=== PATIENT | female | born 1970 | race Caucasian/White ===

== ENCOUNTER → 2020-10-02 07:12 | Outpatient (CLI) | payer BC, SELFPAY ==
--- NOTE | ~2020-10-02 | MM_ITS ---
EXAMINATION: MM screening [facility] BI w gordy HISTORY: Screening mammogram TECHNIQUE: Craniocaudal and mediolateral oblique 3-D tomosynthesis images were obtained and synthetic 2-D images were generated. Bilateral rotated lateral cc views. CAD analysis was submitted and interp reted. COMPARISON: 01/06/2016 bilateral diagnostic digital mammogram and bilateral complete breast ultrasound examination 12/27/2015 bilateral digital screening mammogram BREAST PARENCHYMAL COMPOSITION: The breasts are heterogeneously dense, which may obscure small masses . FINDINGS: Again noted are bilateral benign-appearing calcifications, more numerous on the left. There is no evidence of suspicious mass, calcification, or architectural distortion to suggest malignancy in either breast. There has been no suspicious interval change. IMPRESSION: 1. No mammographic evidence of malignancy. 2. Recommend routine screening mammography in one year. BI-RADS Category 2: Benign finding(s). Reviewed, dictated and finalized at location A.
== END ==
DX: Z12.31 Encounter for screening mammogram for malignant neoplasm of breast (principal)
CPT/HCPCS: 77063; 77067

== ENCOUNTER → 2022-07-30 11:55 | Outpatient (CLI) | payer BC, SELFPAY ==
--- NOTE | ~2022-07-30 | MM_ITS ---
EXAMINATION: MM screening [facility] BI w gordy HISTORY: Screening TECHNIQUE: Craniocaudal and mediolateral oblique 3-D tomosynthesis images were obtained and synthetic 2-D images were generated. CAD analysis was submitted and interpreted. COMPARISON: Comparison to multiple prior studies sequentially, with oldest reviewed study dated 10/2014. BREAST PARENCHYMAL COMPOSITION: The breasts are heterogeneously dense, which may obscure small masses FINDINGS: There is a cluster of indeterminate calcifications in the upper outer quadrant of the left breast. There are no new masses or architectural distortion. IMPRESSION: 1. Clustered indeterminate calcifications upper outer quadrant of the left breast posteriorly. 2. Magnification views are recommended. BI-RADS Category 0: Incomplete: Needs additional imaging evaluation. Reviewed, dictated and finalized at location A. IMPRESSION: 1. Clustered indeterminate calcifications upper outer quadrant of the left randa st posteriorly. 2. Magnification views are recommended. BI-RADS Category 0: Incomplete: Needs additional imaging evaluation.
== END ==
PROVIDERS: PCP Family Medicine Adolescent Medicine
DX: Z12.31 Encounter for screening mammogram for malignant neoplasm of breast (principal); R92.8 Other abnormal and inconclusive findings on diagnostic imaging of breast
CPT/HCPCS: 77063; 77067

== ENCOUNTER 2022-08-13 00:16 | Day surgery (SDC) | payer BC, SELFPAY ==
[2022-08-04 12:36] VITALS: BMI 20.9
[2022-08-13 10:04] VITALS: BMI 20.8
--- NOTE | 2022-08-13 10:35 | P.PNAN_ITS ---
Anes - Initial Pre Proc Eval Procedure: Operation Date: 08/13/22 11:15 Proposed Procedures p Screening Colonoscopy - Andrey Burgos MD Date/Time: 08/13/22 10:35 Surgeon: Andrey Burgos MD Pre Op Diagnosis: neoplasm screening Patient Data Age: 51 Gender: F Height: 1.68 m Weight: 58.5 kg Allergies Allergy/AdvReac Type Severity Reaction Status Date / Time amoxicillin Allergy Swelling Verified 08/04/22 12:56 of Lip/Tongue/Throat Tetanus Vaccines and Toxoid Allergy Anaphylaxis Verified 08/04/22 12:56 Home Medications Medication Instructions Recorded Confirmed Type estradiol 0.5 mg tablet 1 mg PO DAILY 07/19/22 08/04/22 History omega 6-yif-arv-fish oil 60 mg-90 1 cap PO DAILY 07/19/22 08/04/22 History mg-500 mg capsule (Fish Oil) collagen,hydrolysate 500 mg-biotin cap PO 08/04/22 History 800 mcg-ascorbic acid 50 mg capsule tpjvzdhfnxaz-bbsioqju-QQ-omega cap PO 08/04/22 08/04/22 History 3,6,9 #3 400 mcg capsule sodium,potassium,mag sulfates 17.5 See Rx Instructions PO .COMPLEX 08/04/22 08/04/22 Rx gram-3.13 gram-1.6 gram oral soln #354 mL (Suprep Bowel Prep Kit) Patient hx anesthesia problems: none Family hx anesthesia problems: none Results Review: All pre-operative results and documents have been reviewed as part of the pre- operative evaluation. [facility] Surgical History Surgical History (Updated 07/14/22 @ 08:32 by Gunnar Templeton CMA) History of partial hysterectomy Family History Family History (Updated 07/14/22 @ 08:33 by Gunnar Templeton CMA) Father Diabetes mellitus Obese Mother Obese Diabetes mellitus Sibling Diabetes mellitus Obese Sibling Obese Diabetes mellitus Social History Social History (Updated 07/14/22 @ 08:32 by Gunnar Templeton CMA) Smoking status: Never smoker Alcohol intake: current Drinks per week: 1 Alcohol use details: rarely Substance use: never Substance use type: does not use Living arrangements: with family Spiritual care concerns: No Anes - Eval Final PreProcedure Day of Procedure 08/13/22 10:35 Patient weight: normal Heart: regular rate and rhythm Lungs: clear to auscultation Airway: Mallampati scale class II Neurological: alert and oriented Last oral intake: >/= 8 hours ASA classification: II Emergent: no Anesthetic plan: proceed Anesthesia type and monitoring: general GIVS and standard monitoring Results Review: All pre-operative results and documents have been reviewed as part of the pre- operative evaluation. Informed Consent: The patient's anesthetic plan and its attendant risks and benefits were discussed with the patient/family/POA. Questions were solicited and answers provided to the satisfaction of the patient/family/POA.
--- NOTE | 2022-08-13 10:47 | P.HP_ITS ---
History of Present Illness History of Present Illness Consent: Risks, benefits, and alternatives have been discussed and questions answered. Patient agrees to proceed with procedure. Chief complaint: neoplasm screening Narrative: Maral Calderon is a 51 year old female Presents for screening colonoscopy. Patient's current weight appetite and bowel movements are normal. Patient denies abdominal pain. She has had no bleeding. Family history noncontributory. Review of Systems Review of Systems: Review of systems noncontributory. [facility] Surgical History Surgical History (Updated 07/14/22 @ 08:32 by Gunnar Templeton [facility]) History of partial hysterectomy Family History Family History (Updated 07/14/22 @ 08:33 by Gunnar Templeton [facility]) Father Diabetes mellitus Obese Mother Obese Diabetes mellitus Sibling Diabetes mellitus Obese Sibling Obese Diabetes mellitus Social History Social History (Updated 07/14/22 @ 08:32 by Gunnar Templeton [facility]) Smoking status: Never smoker Alcohol intake: current Drinks per week: 1 Alcohol use details: rarely Substance use: never Substance use type: does not use Living arrangements: with family Spiritual care concerns: No Meds Home Medications and Allergies Home Medications Medication Instructions Recorded Confirmed Type estradiol 0.5 mg tablet 1 mg PO DAILY 07/19/22 08/04/22 History omega 7-kuc-xsf-fish oil 60 mg-90 1 cap PO DAILY 07/19/22 08/04/22 History mg-500 mg capsule (Fish Oil) collagen,hydrolysate 500 mg-biotin cap PO 08/04/22 History 800 mcg-ascorbic acid 50 mg capsule cxlbpgvtqtwy-kbjknjrr-KM-omega cap PO 08/04/22 08/04/22 History 3,6,9 #3 400 mcg capsule sodium,potassium,mag sulfates 17.5 See Rx Instructions PO .COMPLEX 08/04/22 08/04/22 Rx gram-3.13 gram-1.6 gram oral soln #354 mL (Suprep Bowel Prep Kit) Allergies Allergy/AdvReac Type Severity Reaction Status Date / Time amoxicillin Allergy Swelling Verified 08/04/22 12:56 of Lip/Tongue/Throat Tetanus Vaccines and Toxoid Allergy Anaphylaxis Verified 08/04/22 12:56 Exam Narrative: Physical exam reveals patient to be alert. Vital signs stable. HEENT exam is unremarkable. Patient is anicteric. Lungs are clear to auscultation and percussion. Heart is without murmur or extra sounds. Abdomen bowel sounds are present soft nontender with no organomegaly. Digital external rectal exam is normal. Assessment and Plan Assessment and plan (1) Encounter for screening colonoscopy: Code(s): Z12.11 - Encounter for screening for malignant neoplasm of colon Status: Acute Assessment and Plan: Patient presents today for screening colonoscopy. Appears to be at average risk for colon polyps. Further recommendations may be given after endoscopy.
[2022-08-13] MEDS: LACTATED RINGERS 1,000 ML 150 ML IV CONT (10:57)
[2022-08-13 11:16] VITALS: BP 96/56; PULSE 57; RESP 18; O2SAT 100
[2022-08-13 11:26] VITALS: BP 118/89; PULSE 69; RESP 18; O2SAT 100
[2022-08-13 11:36] VITALS: BP 99/61; PULSE 51; RESP 19; O2SAT 100
== END 2022-08-13 11:47 | disposition home or self-care (01) ==
PROVIDERS: PCP Family Medicine Adolescent Medicine; Visit Provider Internal Medicine Gastroenterology
PROC: 0DJD8ZZ Inspection of Lower Intestinal Tract, Via Natural or Artificial Opening Endoscopic (ICD-10-PCS; CPT 45378; principal; 2022-08-13 11:15)
DX: Z12.11 Encounter for screening for malignant neoplasm of colon (principal); K64.8 Other hemorrhoids
CPT/HCPCS: 45378; J2704; J7120

== ENCOUNTER → 2022-08-23 08:11 | Outpatient (CLI) | payer BC, SELFPAY ==
--- NOTE | ~2022-08-23 | MM_ITS ---
EXAMINATION: MM diagnostic mammo unilat LT HISTORY: Left breast calcifications on screening mammogram TECHNIQUE: Magnification views of the left breast were performed and synthetic 2-D images were genera catrina. CAD analysis was submitted and interpreted. COMPARISON: 07/30/2022, 10/02/2020,01/06/2016, 12/27/2015 FINDINGS: There are punctate calcifications in the posterior third of the upper outer quadrant of the breast which appear to be round in morphology. In addition, some of the calcifications appear to be present on comparison mammograms. No associated mass is identified. IMPRESSION: 1. Probably benign left breast calcifications. 2. Recommend 6 month follow-up left diagnostic mammogram. BI-RADS category 3, probably benign findings. Reviewed, dictated and finalized at location A.
== END ==
PROVIDERS: PCP Family Medicine Adolescent Medicine
DX: R92.8 Other abnormal and inconclusive findings on diagnostic imaging of breast (principal)
CPT/HCPCS: 77065